=== PATIENT | male | born 1975 | race Caucasian/White ===

== ENCOUNTER → 2023-09-21 10:54 | Outpatient (CLI) | payer OTHER, SELFPAY ==
--- NOTE | ~2023-09-21 | US_ITS ---
EXAMINATION: US soft tissue groin LT DATE: 09/21/2023 11:30 INDICATION: Malignant neoplasm of left testis. Left groin hernia. TECHNIQUE: Grayscale and Doppler ultrasound images of the left groin were obtained. COMPARISON: Ultrasound 08/02/2014, CT 01/21 717 FINDINGS: In the left inguinal region, there is a hernia containing fat. No abnormal lymphadenopathy. IMPRESSION: 1. Left inguinal hernia containing fat. Reviewed, dictated and finalized at location A. ION WORKER
== END ==
PROVIDERS: PCP Internal Medicine Medical Oncology; Visit Provider Internal Medicine Medical Oncology
DX: C62.12 Malignant neoplasm of descended left testis (principal); K40.90 Unilateral inguinal hernia, without obstruction or gangrene, not specified as recurrent
CPT/HCPCS: 76882

== ENCOUNTER 2025-01-22 07:30 | Observation (INO) | payer OTHER, SELFPAY ==
[2025-01-22] VITALS (7 sets, daily range): BP systolic 125–135; BP diastolic 73–91; PULSE 58–71; RESP 16–18; TEMP 36.2–36.4; O2SAT 95–97; BMI 29.0
--- NOTE | ~2025-01-22 | MR_ITS ---
MRI of the lumbar spine Clinical History: Compression fracture, metastatic disease Technique: Axial T2-weighted images, and sagittal T1-weighted, T2-weighted, and T2 fat-sat images wer e acquired. Following intravenous administration of 19 cc ProHance gadolinium, T1-weighted fat-sat im aging was performed in the axial and sagittal planes. Findings: There is acute to subacute, mild compression fracture deformity of L4 with mild loss of hei ght superiorly and amorphous marrow edema, versus possibly acute Schmorl's node at the anterior, supe rior endplate. No other fracture or subluxation. No suspicious bone marrow signal abnormality seen. I ntraosseous hemangioma noted at T12. At L1-L2, there is moderate degenerative disc narrowing with disc bulge and annular fissure. There is mild to moderate facet arthropathy. No mabel central canal stenosis. Neural foramina are preserved. At L2-L3, there is mild disc bulge with moderate facet arthropathy. No central canal stenosis. There is mild left neural foraminal narrowing. Right neural foramen preserved. At L3-L4, there is mild degenerative distended. There is minimal disc bulge and moderate facet arthro ludy. No mabel central canal stenosis. There is mild left neural foraminal narrowing. Right neural f oramen preserved. At L4-L5, there is mild disc bulge with moderate facet arthropathy. No mabel central canal stenosis. There is moderate to advanced left neural foraminal narrowing, and minimal right neural foraminal valencia rowing. At L5-S1, there is minimal disc bulge and mild facet arthropathy. No central canal stenosis. Minimal right neural foraminal narrowing present. Left neural foramen preserved. Paravertebral soft tissues are unremarkable. No abnormal postcontrast enhancement identified. Impression: Acute to subacute mild compression deformity of L4, versus possibly acute Schmorl's node superior end plate. No evidence for metastatic disease. Mild degenerative spondylosis, as above. Reviewed, dictated and finalized at [facility]. Impression: Acute to subacute mild compression deformity of L4, versus possibly acute Schmo rl's node superior endplate. No evidence for metastatic disease. Mild degenerative spondylosis, as above.
--- NOTE | ~2025-01-22 | CT_ITS ---
CLINICAL INDICATION: Abdominal pain and distention COMPARISON: 01/21/2017. TECHNIQUE: Multiple contiguous axial images of the abdomen and pelvis were performed following the ad ministration of with 100 mL Omnipaque-350 intravenous contrast The dose-length product (DLP) was 618.79 mGy-cm. Automated exposure control and iterative reconstruction technique were employed. FINDINGS/OBSERVATIONS: Visualized lower thorax: The bilateral lung bases are clear. The heart is of normal size, without pericardial effusion. Small air-filled hiatal hernia. Liver: The liver demonstrates homogeneous enhancement and is not enlarged. Gallbladder and biliary system: The gallbladder is distended, and otherwise unremarkable. Pancreas: The pancreas enhances homogeneously without ductal dilatation. Spleen: The spleen enhances homogeneously and is not enlarged. Kidneys: The bilateral kidneys enhance symmetrically without hydronephrosis or renal calculi. Adrenal glands: Unremarkable. Gastrointestinal tract: Fecal stasis within the colon. Appendix: The air-filled appendix is of normal caliber (axial series, images 113 through 125) Vasculature: Unremarkable. Lymph nodes: No pathologically enlarged or morphologically suspicious lymph nodes within the retroperitoneum or at the root of the mesentery. Pelvic structures: The bladder is minimally distended, and demonstrates thickened riley. The prostate gland is not enlarged. Body wall and musculoskeletal: Complex fat-containing umbilical hernia. Fat-containing left inguinal hernia. Compression of the superior endplate of L4, an interval change from the 2017 examination with edwin albarran soft tissue change, possibly subacute. Adjacent lucency which may be related to compression versus possibly a metastatic focus. Clinical correlation is needed regarding point tenderness in this location. Loss of 50% of the vertebral body height is noted. IMPRESSION: No acute intra-abdominal pathology. Compression of the L4 vertebral body, possibly subacute, with additional findings suggesting a possib le pathologic fracture, as detailed above. Reviewed, dictated and finalized at location [facility]. IMPRESSION: No acute intra-abdominal pathology. Compression of the L4 vertebral body, possibly subacute, with additional findin gs suggesting a possible pathologic fracture, as detailed above.
--- OUTSIDE RECORDS SUMMARY | 2025-01-22 07:32 | XMS_ITS | Clinical Summary ---
Author Organization [facility] Address [address] [place] [address] Care Team Providers Care Threshing Machine Operator Name Role Phone Ann Lang MD Primary Care Provider [phone] Source Comments [facility] and Associated Physician Practices is amultiple site organization consisting of ambulatory clinics and hospital sitesin [place], [place], [place] and [place]. This disclosure is being madepursuant to the Care Everywhere program and may not contain all information available regarding this patient. Last updated 18.[facility] Allergies No known active allergies Medications * Be aware that medications may not be up to date on this document. Alwaysverify current medications with the patient. atorvastatin (Lipitor) 10 MG tablet Take 1 (one) tablet by mouth once daily 10/11/2022 Active Loratadine (CLARITIN PO) Active Social History Tobacco Use Types Packs/Day Years Used Date Smoking Tobacco: Former Cigarettes Q uit: 10/11/2006 Smokeless Tobacco: Never Alcohol Use Standard Drinks/Week Comments Yes 0 (1 standard drink = 0.6 oz pur e alcohol) Socially Sex and Gender Information Value Date Recorded Sex Assigned at Male 10/22/2022 8:57 AM TETRYL BLENDER OPERATOR Legal Sex Male 11:12 AM TETRYL BLENDER OPERATOR Gender Identity Male 10/22/2022 8:57 AM TETRYL BLENDER OPERATOR Sexual Orientation Straight 10/22/2022 8: 57 AM TETRYL BLENDER OPERATOR Last Filed Vital Signs Vital Sign Reading Time Taken Comments Blood Pressure 142/78 05/24/2023 3:26 PM CDT Pulse 72 12/02/2022 2:25 PM TETRYL BLENDER OPERATOR Temperature 36 C (96.8 F) 12/02/2022 2:25 PM TETRYL BLENDER OPERATOR Respiratory Rate 15 12/02/2022 2:25 PM TETRYL BLENDER OPERATOR Oxygen Saturation 97% 12/02/2022 2:25 PM TETRYL BLENDER OPERATOR Inhaled Oxygen Concentration - - Weight 94.5 kg (208 lb 6.4 oz) 05/24/2023 3:25 P M CDT Height 181.6 cm (5' 11.5 ) 05/24/2023 3:25 PM CD T Body Mass Index 28.66 05/24/2023 3:25 PM CDT Plan of Treatment Health Maintenance Due Date Last Done Comments COLOGUARD (AGES 45-75) - COL ON CA SCREENING 1974 CT COLONOGRAPHY - COLON CA SCREENING 1975 FIT - COLON CA SCREENING 1974 FLEX SIG - COLON CA SCREENING 1974 HIV SCREENING 1989 HEPATITIS C SCREENING 09/03/1992 DTAP/TDAP/TD VACCINES (1 - Tdap) 1993 HEPATITIS B VACCINE (1 of 3 - 19+ 3-dose series) 1993 COVID-19 VACCINE (4 - 2023-2 5 season) 2024 08/06/2021, 01/01/2021, 12/03/2020 PNEUMOCOCCAL VACCINE 50+ (1 of 1 - PCV) 2024 ZOSTER VACCINE (1 of 2) 2024 DEPRESSION SCREENING 10/10/2024 INFLUENZA VACCINE (Season Ended) 2025 08/17/2021, 07/09/2020, 08/23/2019 SCREENING FOR DIABETES 10/25/2025 10/25/2022 COLONOSCOPY - COLON CA SCREENING 12/02/2027 12/02/2022, 12/02/2022, 12/02/2022 Colorectal Cancer Screening 12/02/2027 COLON MONITORING 12/02/2032 12/02/2022, 12/02/2022, 12/02/2022 HIB VACCINE Aged Out No longer eligi ble based on patient's age to complete this topic HPV VACCINE Aged Out No longer eligi ble based on patient's age to complete this topic MENINGOCOCCAL (Group B) VACCINE SHARED DECISION-MAKING Aged Out No longer eligible based on patient's age to complete this topic MENINGOCOCCAL GROUPS A/C/Y/W VACCINE Aged Out No longer eligible b ased on patient's age to complete this topic Procedures Procedure Name Priority Date/Time Associated Diagnosis Comments ENDOSCOPY, COLON, SCREENING Routine 12/02/2022 1:10 PM TETRYL BLENDER OPERATOR Screen for colon cancer HEMOGLOBIN A1C Routine 10/25/2022 3:42 PM TETRYL BLENDER OPERATOR Lower abdominal pain Irritable bowel syndrome with diarrhea Change in bowel habits Generalized postprandial abdominal pain from Last 3 Months or Most Recently Relevant to Health Maintenance Results * ENDOSCOPY, COLON, SCREENING (12/02/2022 1:10 PM TETRYL BLENDER OPERATOR) Report Endoscopy POC _ Patient Name: Juan Carlos Cm Procedure Date: 12/02/2022 1:10 PM Date of : 1975 Admit Type: Outpatient Age: 47 Gender: Male Ethnicity: Not or Race: White Attending MD: Naren Ortiz MD _ Procedure: Colonoscopy Indications: Screening for colorectal malignant neoplasm Providers: Naren Ortiz MD (Doctor), Sal Jackson RN, Aga Francois, Artisan Plasterer, Yanira Holloway, Artisan Plasterer Patient Profile: 47M presents for screening colonoscopy avg risk. no prior exams Referring MD: Ann Lang MD (Referring MD) Medicines: Monitored Anesthesia Care Complications: No immediate complications. _ Estimated Blood Loss: Estimated blood loss was minimal. Procedure: Pre-Anesthesia Assessment: - Prior to the procedure, a History and Physical was performed, and patient medications and allergies were reviewed. The patient's tolerance of previous anesthesia was also reviewed. The risks and benefits of the procedure and the sedation options and risks were discussed with the patient. All questions were answered, and informed consent was obtained. Prior Anticoagulants: The patient has taken no previous anticoagulant or antiplatelet agents. ASA Grade Assessment: II - A patient with mild systemic disease. After reviewing the risks and benefits, the patient was deemed in satisfactory condition to undergo the procedure. After I obtained informed consent, the scope was passed under direct vision. Throughout the procedure, the patient's blood pressure, pulse, and oxygen saturations were monitored continuously. The Colonoscope was introduced through the anus and advanced to the cecum, identified by appendiceal orifice and ileocecal valve. The colonoscopy was performed without difficulty. The patient tolerated the procedure well. The quality of the bowel preparation was fair. The ileocecal valve, appendiceal orifice, and rectum were photographed. Impression: - Preparation of the colon was fair. - One 5 mm polyp in the sigmoid colon, removed with a cold biopsy forceps. Resected and retrieved. - One 9 mm polyp in the transverse colon, removed with a cold snare. Resected and retrieved. - The examination was otherwise normal on direct and retroflexion views. Findings: The perianal and digital rectal examinations were normal. A 5 mm polyp was found in the sigmoid colon. The polyp was sessile. The polyp was removed with a cold biopsy forceps. Resection and retrieval were complete. A 9 mm polyp was found in the transverse colon. The polyp was sessile. The polyp was removed with a cold snare. Resection and retrieval were complete. The exam was otherwise without abnormality on direct and retroflexion views. _ Recommendation: - High fiber diet. - Repeat colonoscopy in 5 years for surveillance based on pathology results. Procedure Code(s): --- Professional --- 60724, Colonoscopy, flexible; with removal of tumor(s), polyp(s), or other lesion(s) by snare technique 54317, 59, Colonoscopy, flexible; with biopsy, single or multiple --- Technical --- 79318, Colonoscopy, flexible; with removal of tumor(s), polyp(s), or other lesion(s) by snare technique 05244, 59, Colonoscopy, flexible; with biopsy, single or multiple Diagnosis Code(s): --- Professional --- Z12.11, Encounter for screening for malignant neoplasm of colon K63.5, Polyp of colon --- Technical --- Z12.11, Encounter for screening for malignant neoplasm of colon K63.5, Polyp of colon CPT copyright 2019 [employer]. All rights reserved. The codes documented in this report are preliminary and upon porter head review may be revised to meet current compliance requirements. Naren Ortiz MD 12/02/2022 2:12:27 PM This report has been signed electronically. Number of Addenda: 0 Note Initiated On: 12/02/2022 1:10 PM [facility] 12/02/2022 1:10 PM TETRYL BLENDER OPERATOR us Naren Ortiz MD GI PROCEDURE ORDERABLES Edited R esult - Final [facility] * HEMOGLOBIN A1C (10/25/2022 3:42 PM TETRYL BLENDER OPERATOR) Hemoglobin A1c 5.2 <5.7 % 10/25/2022 3:53 PM TETRYL BLENDER OPERATOR [facility] Estimated Average Glucose 103 mg/dL 10/25/2022 3:53 PM TETRYL BLENDER OPERATOR [facility] Blood BLOOD SPECIMEN / Unknown Lab Venipuncture / Unknown 10/25/2022 3:42 PM TETRYL BLENDER OPERATOR 10/25/2022 3:42 PM TETRYL BLENDER OPERATOR Narrative [facility] - 10/25/2022 3:53 PM TETRYL BLENDER OPERATOR HbA1c Interpretation: Normal: < 5.7% Pre-diabetes: 5.7-6.4% Diabetes: Equal to or greater than 6.5% Test results diagnostic of diabetes should be repeated for confirmation. Treatment target values recommended by ADA and other clinical organizations should be used to evaluate metabolic control in patients. This test should not replace glucose testing for patients with Type 1 diabetes, pediatric patients, or women. Falsely low HbA1c results may be observed in patients with clinical conditions that shorten erythrocyte life span or decrease mean erythrocyte age such as the presence of unstable hemoglobin variants, elevated hemoglobin F level or other causes of hemolytic anemia. HbA1c may not accurately reflect glycemic control when clinical conditions that affect erythrocyte survival are present. Severe Iron deficiency anemia may yield falsely high results. Hemoglobin A1c assay should not be used to diagnose or monitor diabetes in patients with malignancy, recent blood transfusion, chronic kidney or liver disease. This method may yield falsely low results when hemoglobin (HbF) exceeds 5% in the specimen. The [employer] assay for the measurement of HbA1c is a National Glycohemoglobin Standardization Program (NGSP) certified method. Conrad Osborne BOOSTER OPERATOR-[facility] - CHEMISTRY ORDER FATEMEH Final Result [facility] [address] [place] [address] from Last 3 Months or Most Recently Relevant to Health Maintenance Insurance [facility] [place] [address] Care Teams Threshing Machine Operator Relationship Specialty Start Date End Date Ann Lang MD [address] [place], [place] [id number] PCP - General 10/22/22
[2025-01-22 07:51] LABS: Basophils Absolute Auto 0.1 K/mm3 (0.0-0.1); Basophils Percent Auto 1.7 % (0.2-1.2); Eosinophils Absolute Auto 0.6 K/mm3 (0-0.3); Eosinophils Percent Auto 9.3 % (0-4.4); Hematocrit 43.5 % (42.0-52.0); Hemoglobin 13.8 g/dL (14.0-18.0); Lymphocytes Absolute Auto 2.03 K/mm3 (0.9-3.2); Lymphocytes Percent Auto 34.5 % (18.3-44.2); Mean Corpuscular HGB Conc 31.7 g/dl (32-36); Mean Corpuscular Hemoglobin 30.7 pg (26-34); Mean Corpuscular Volume 96.7 fl (80-100); Mean Platelet Volume 9.7 fl (7.4-10.4); Monocytes Absolute Auto 0.6 K/mm3 (0.1-0.6); Neutrophils Absolute Auto 2.6 K/mm3 (1.3-6.7); Neutrophils Percent Auto 44.5 % (45.5-73.1); Platelet Count Result 307 k/mm3 (150-375); Red Cell Distribution Width 12.2 % (11.5-14.5); White Blood Count 5.9 K/mm3 (4.5-10.0)
--- NOTE | 2025-01-22 07:52 | ED_ITS ---
HPI - General Adult General Chief complaint: Abdominal Pain Stated complaint: abd pain Time Seen by Provider: 01/22/25 07:35 History of Present Illness HPI narrative: Patient 49-year-old gentleman presents emergency department with chief complaint of abdominal pain abdominal distension patient states that this began around 530 this morning feels as though his abdomen is bloated did report that he had a normal bowel movement this morning reports that he has had some nausea patient reports has prior history of testicular cancer that was previously treated. Related Data Allergies Allergy/AdvReac Type Severity Reaction Status Date / Time No Known Allergies Allergy Unknown Verified 01/22/25 07:31 Review of Systems 2 Review of Systems: A 10 system review of systems was completed on the patient and is negative except for what is stated in the HPI. Nursing and ancillary documentation was reviewed. [facility] Past Medical History Medical History Mixed hyperlipidemia Seminoma of testis, stage 1 Social History Social History Smoking status: Never smoker Second hand tobacco smoke exposure: No Alcohol intake: current Drinks per week: 4 Substance use: never Substance use type: does not use Lack of Transportation: No Lack of Food: Never True Current Housing: I Have Housing Concerned About Future Housing: No Difficulty Paying Gas/Electric Bills: No Difficulty Paying for Meds: No Currently Unemployed: No Education: Master's Degree or Higher Difficulty w/ Childcare or Family Care: No Living arrangements: with family Gender identity (if verbalized by the patient): Male Sexual Orientation (if Verbalized by the Patient): Straight or Heterosexual Spiritual care concerns: No Agree to blood products: Yes Exam 2 Narrative: GENERAL: Well-appearing, well-nourished, and in no acute distress. HEAD: Normocephalic, atraumatic. EYES: PERRLA and EOMI. ENT: Nares clear, no rhinorrhea or epistaxis. Mucous membranes moist. NECK: Supple. CHEST: Clear to auscultation. No respiratory distress. HEART: Regular rate and rhythm. No murmur heard. Normal peripheral pulses. ABDOMEN: Soft, nontender, nondistended, normal active bowel sounds. Slight fullness or at the umbilicus no appreciable large hernia EXTREMITIES: Normal range of motion. No edema. SKIN: Warm, dry, no rash. NEURO: No focal deficits. Alert and oriented x3. PSYCH: Normal mood and affect. Course Vital Signs Vital signs: Vital Signs Pulse Rate 69 01/22/25 07:34 Respiratory Rate 16 01/22/25 07:34 Blood Pressure 133/89 01/22/25 07:34 Pulse Oximetry 95 01/22/25 07:34 Pulse Rate 60 01/22/25 09:13 Respiratory Rate 18 01/22/25 09:13 Blood Pressure 132/91 H 01/22/25 09:13 Pulse Oximetry 97 01/22/25 09:13 Medical Decision Making MDM Narrative Medical decision making narrative: Differential diagnosis includes intra-abdominal infection, diverticulitis, colitis, bowel obstruction CT scan showed evidence of an L3 compression fracture with possible metastatic disease. Given the patient has prior history of testicular cancer although he was deemed cancer free after 10 years by his oncologist. The case was discussed with Neurosurgery who recommended MRI with and without contrast to determine whether this is an oncological cause and if there is an oncological cause recommended oncology workup. The case was discussed with the hospitalist patient to facilitate workup on an expedited priority Vital Signs Vital Signs: Vital Signs Pulse Rate 69 01/22/25 07:34 Respiratory Rate 16 01/22/25 07:34 Blood Pressure 133/89 01/22/25 07:34 Pulse Oximetry 95 01/22/25 07:34 Pulse Rate 60 01/22/25 09:13 Respiratory Rate 18 01/22/25 09:13 Blood Pressure 132/91 H 01/22/25 09:13 Pulse Oximetry 97 01/22/25 09:13 Lab Data 01/22/25 07:46 01/22/25 07:46 Labs: Lab Results 01/22/25 01/22/25 01/22/25 Range/Units 07:46 08:09 08:35 WBC 5.9 (4.5-10.0) K/mm3 RBC 4.50 L (4.6-6.20) M/mm3 Hgb 13.8 L (14.0-18.0) g/dL Hct 43.5 (42.0-52.0) % MCV 96.7 (80-100) fl MCH 30.7 (26-34) pg MCHC 31.7 L (32-36) g/dl RDW 12.2 (11.5-14.5) % Plt Count 307 (150-375) k/mm3 MPV 9.7 (7.4-10.4) fl Immature Gran % (Auto) 0.0 (0-0.5) % Neut % (Auto) 44.5 L (45.5-73.1) % Lymph % (Auto) 34.5 (18.3-44.2) % [place] % (Auto) 10.0 H (2.6-8.5) % Eos % (Auto) 9.3 H (0-4.4) % Baso % (Auto) 1.7 H (0.2-1.2) % Lymph # (Auto) 2.03 (0.9-3.2) K/mm3 [place] # (Auto) 0.6 (0.1-0.6) K/mm3 Eos # (Auto) 0.6 H (0-0.3) K/mm3 Baso # (Auto) 0.1 (0.0-0.1) K/mm3 Abs Immat Gran (auto) 0.00 (0.00-0.031) K/mm3 Absolute Neuts (auto) 2.6 (1.3-6.7) K/mm3 Absolute Nucleated RBC 0.000 (0.0-0.012) K/mm3 Nucleated RBC % 0.0 (0.0-0.2) % Sodium 139 (137-145) mmol/L Potassium 4.2 (3.4-5.0) mmol/L Chloride 103 (98-107) mmol/L Carbon Dioxide 29 (22-30) mmol/L Anion Gap 7 (4-12) mmol/L BUN 14 (9-20) mg/dL Creatinine 0.73 (0.7-1.3) mg/dL Estim Creat Clear Calc 113 ml/min Estimated GFR > 60 (59 - ) Glucose 101 (65-110) mg/dL Lactic Acid 0.9 (0.7-2.0) mmol/L Calcium 9.0 (8.4-10.2) mg/dL Total Bilirubin 0.4 (0.2-1.3) mg/dL AST 34 (17-59) U/L ALT 53 H (6-50) U/L Alkaline Phosphatase 53 (38-126) U/L Total Protein 8.0 (6.3-8.2) g/dL Albumin 4.5 (3.5-5.1) g/dL Lipase 107 (23-300) U/L Urine Color Yellow (Yellow) Urine Appearance Clear (Clear) Urine pH 8.0 (5.0-9.0) Ur Specific [place] 1.033 (1.001-1.035) Urine Protein Negative (Negative) mg/dL Urine Glucose (UA) Negative (Negative) mg/dL Urine Ketones Negative (Negative) mg/dL Ur Blood (Man) Negative (Negative) Urine Nitrate Negative (Negative) Urine Bilirubin Negative (Negative) Urine Urobilinogen 0.2 (<2.0) mg/dL Leukocyte Esterase Rfl Negative (Negative) UMM/UL Discharge Plan Discharge Clinical Impression: Abdominal pain, Compression fracture of L3 vertebra Patient Disposition: Still a Patient Condition: Stable Instructions: Antibiotic Form Patient Language: Turkish Prescriptions: No Action atorvastatin 10 mg tablet 10 mg PO DAILY Qty: 90 1RF Follow-up/Referrals: Ann Lang MD [Primary Care Provider] - Time of Disposition: 09:15
[2025-01-22] MEDS: SODIUM CHLORIDE 0.9% IV 1,000 ML 999 ML IV CONT (07:55)
[2025-01-22] MEDS: ONDANSETRON INJ 4 MG/2 ML VIAL IV PUSH (07:56)
[2025-01-22] MEDS: MORPHINE SULFATE (*CRX) 4 MG/ML INJ IV PUSH ×2 (07:56→14:46)
[2025-01-22 08:04] LABS: Alanine Aminotransferase 53 U/L (6-50); Albumin Level 4.5 g/dL (3.5-5.1); Alkaline Phosphatase 53 U/L (38-126); Anion Gap 7 mmol/L (4-12); Aspartate Amino Transferase 34 U/L (17-59); Bilirubin,Total 0.4 mg/dL (0.2-1.3); Blood Urea Nitrogen 14 mg/dL (9-20); Carbon Dioxide 29 mmol/L (22-30); Chloride 103 mmol/L (98-107); Estimated CRCL calculation 113 ml/min; Estimated Glomerular Filt Rate > 60; Glucose 101 mg/dL (65-110); Lipase 107 U/L (23-300); Potassium 4.2 mmol/L (3.4-5.0); Sodium 139 mmol/L (137-145)
[2025-01-22 08:25] LABS: Lactic Acid Reflex 0.9 mmol/L (0.7-2.0)
[2025-01-22 08:41] LABS: Add Urine Microscopic? NO; Appearance Urine Clear (Clear); Bilirubin Urine Negative (Negative); Blood Urine Negative (Negative); Color Urine Yellow (Yellow); Glucose Urine UA Negative (Negative); Ketones Urine Negative (Negative); Leukocyte Esterase Ur Negative LEU/UL (Negative); Nitrate Urine Negative (Negative); Protein Urine Negative (Negative); Specific Grav Ur 1.033 (1.001-1.035); Urobilinogen Urine 0.2 mg/dL (<2.0)
--- NOTE | 2025-01-22 10:15 | ADMGEN ---
This patient, Juan Carlos Craft, was admitted to Medical Room 341-01. Patient/family oriented to hospital policies and general routines including ID bracelet, bed and alarms, visiting hours, pain management, procedures, bathroom and other care routines, personal items, smoking policy, room service/diet, and visiting hours. Information on how to activate the Rapid Response Team has been discussed. Patient/Family are encouraged to report perceived risks to care and to ask questions if they do not understand what they are told or what they should do.
--- NOTE | 2025-01-22 13:40 | PM.IMHP ---
H&P: HPI History of Present Illness Date/Time: 01/22/25 17:00 Chief Complaint: Abdominal pain. 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 He felt fine when he got up this morning and about 30 minutes later he developed fairly sudden onset of severe, diffuse periumbilical pain. Abdomen felt bloated and quickly became somewhat firm and distended. He has had similar symptoms on a few other occasions and they seemed to resolve without intervention however he has tried taking Gas-X and Opal-[place] previously. He is still having some discomfort but it is much improved after receiving IV morphine. On examination he has an umbilical hernia which is reducible but quite tender to palpation with a slightly bluish hue. With further questioning he says that the hernia seems to bulge more with the above symptoms. His last bowel movement was this morning and was unremarkable. He denies fever, chills, sweats, chest pain, epigastric pain, indigestion, hematemesis, melena, and hematochezia. In the ED: Vital signs were stable on arrival. Labs were significant for WBC count of 5.9, hemoglobin 13.8 with 9.3% eosinophils, and an ALT of 53. Urinalysis was unremarkable. CT of the abdomen and pelvis showed no acute intra-abdominal pathology but did note compression fracture of the L4 vertebral body, possibly subacute, with additional finding suggesting a possible pathologic fracture. He is being admitted for MRI. He has not had any falls or trauma and denies back pain. Weight has remained stable and in fact he is up perhaps about 10 lbs. Review of Systems Review of Systems: 12 systems were reviewed and are negative except for as per HPI. [facility] Past Medical History Medical History Mixed hyperlipidemia Seminoma of testis, stage 1 Social History Social History Social History: Surrogate medical decision maker: Tory Craft, spouse. Code status: Full code. Smoking status: Never smoker Second hand tobacco smoke exposure: No Alcohol intake: current Drinks per week: 4 Substance use: never Substance use type: does not use Do You Feel Safe in your Home?: Yes Lack of Transportation: No Lack of Food: Never True Current Housing: I Have Housing Concerned About Future Housing: No Difficulty Paying Gas/Electric Bills: No Difficulty Paying for Meds: No Currently Unemployed: No Education: Master's Degree or Higher Difficulty w/ Childcare or Family Care: No Living arrangements: with family Spiritual care concerns: No Agree to blood products: Yes Meds Home Medications and Allergies Home Medications ?Medication ?Instructions ?Recorded ?Confirmed ?Type atorvastatin 10 mg tablet 10 mg PO DAILY #90 tabs 10/18/24 01/22/25 Rx Allergies Allergy/AdvReac Type Severity Reaction Status Date / Time No Known Allergies Allergy Unknown Verified 01/22/25 07:31 Vital Signs Vital Signs - 24 hr 01/22/25 07:34 01/22/25 09:13 01/22/25 09:18 Temperature 97.6 F Pulse Rate 69 60 Respiratory Rate 16 18 Blood Pressure 133/89 132/91 H Pulse Oximetry 95 97 Oxygen Delivery 01/22/25 10:10 Temperature Pulse Rate Respiratory Rate Blood Pressure Pulse Oximetry 97 Oxygen Delivery Room Air Exam Narrative: General: Well-developed, nontoxic-appearing gentleman sitting in a child study the bed in no distress. Weight: 96 kg. BMI: 29.1. HEENT: PERRL, EOMI. Sclera anicteric. Oral mucosa moist. Neck: Supple. Respiratory: Lungs are clear to auscultation bilaterally. Cardiovascular: Regular rate and rhythm with S1-S2. Gastrointestinal: Abdomen is soft and nondistended with positive bowel sounds. He is tender to palpation the periumbilical region and over a umbilical hernia which is slightly bulging and has a faint bluish hue to it. The hernia is reducible. No guarding or rebound tenderness. Skin: Warm and dry. No rash or lesions on limited exam. Extremities: No cyanosis, clubbing, or edema. Radial and pedal pulses intact. Spine: No midline vertebral tenderness. Neurological: Alert. Cranial nerves 2-12 are grossly intact. Delete No gross focal deficits to casual conversation. Psychiatric: Pleasant and cooperative with normal mood and affect. Judgment and insight intact. H&P: Results Labs Labs: Short CBC 01/22/25 Range/Units 07:46 WBC 5.9 (4.5-10.0) K/mm3 Hgb 13.8 L (14.0-18.0) g/dL Hct 43.5 (42.0-52.0) % Plt Count 307 (150-375) k/mm3 BMP 01/22/25 07:46 Sodium 139 Potassium 4.2 Chloride 103 Carbon Dioxide 29 BUN 14 Creatinine 0.73 Glucose 101 Calcium 9.0 Liver Function 01/22/25 Range/Units 07:46 Total Bilirubin 0.4 (0.2-1.3) mg/dL AST 34 (17-59) U/L ALT 53 H (6-50) U/L Alkaline Phosphatase 53 (38-126) U/L Albumin 4.5 (3.5-5.1) g/dL Urine 01/22/25 Range/Units 08:35 Urine Color Yellow (Yellow) Urine Appearance Clear (Clear) Urine pH 8.0 (5.0-9.0) Ur Specific [place] 1.033 (1.001-1.035) Urine Protein Negative (Negative) mg/dL Urine Glucose (UA) Negative (Negative) mg/dL Imaging Abdomen/Pelvis CT 01/22/25 08:38 IMPRESSION: No acute intra-abdominal pathology. Compression of the L4 vertebral body, possibly subacute, with additional findings suggesting a possible pathologic fracture, as detailed above. Assessment and Plan Assessment and plan (1) Compression fracture of L4 vertebra: Code(s): S32.040A - Wedge compression fracture of fourth lumbar vertebra, initial encounter for closed fracture Status: Acute (2) Umbilical hernia: Code(s): K42.9 - Umbilical hernia without obstruction or gangrene Status: Acute (3) Mixed hyperlipidemia: Code(s): E78.2 - Mixed hyperlipidemia Status: Acute Plan The patient presented to the emergency department for fairly sudden onset abdominal pain with bloating and distension early this morning as detailed in HPI. Labs, imaging, EKG, and all reports were personally reviewed. His symptoms improved with morphine but he continues to have tenderness to palpation in the periumbilical region, more so over the umbilical hernia which is reducible. It is possible that his hernia is causing these intermittent episodes of abdominal pain if it becomes transiently incarcerated. Fecal stasis of the colon was also noted on CT scan however I think his pain may be more related to the hernia. Surgery consulted for their opinion. Analgesics available as needed; we talked about limiting narcotics due to findings of fecal stasis. Start MiraLax. Incidentally a L4 compression fraction was seen on imaging with findings suggesting a possible pathologic fracture and an MRI has been ordered. He was treated for stage I seminoma approximately 10 years ago and his scans have always been clear. He does not have any back pain or neurologic symptoms. Vital signs are stable. His home medications will be reviewed and resumed as appropriate. Findings and treatment plan were discussed with the patient and his at bedside. Questions were solicited and answered to satisfaction. The patient's medical management will be taken over by the hospitalist team in a.m. Quality VTE Prophylaxis VTE prophylaxis: mechanical ordered If No VTE Prophylaxis Answer both mechanical and pharmacologic: Reason no pharmacologic proph: low risk/not indicated The patient has been admitted under observation status. Hospitalist [facility] Advance Care Plan I have confirmed that the patient's Advanced Care Plan is present, code status is documented, or surrogate decision maker is listed in patient medical record.: Yes Medication Reconciliation I have utilized all available resources to obtain, update and review the patients current medications (includes all prescriptions, OTC, herbals, cannabis, and nutritional supplements).: Yes
[2025-01-22] MEDS: ACETAMINOPHEN 325 MG TABLET 650 MG PO (20:38)
[2025-01-23 06:00] VITALS: BP 122/69; PULSE 57; RESP 18; TEMP 36.1; O2SAT 96
[2025-01-23] MEDS: ATORVASTATIN 10 MG TABLET PO (08:52)
--- NOTE | 2025-01-23 10:40 | P.CONGS_ITS ---
Assessment and Plan Assessment and plan (1) Umbilical hernia: Code(s): K42.9 - Umbilical hernia without obstruction or gangrene Status: Acute Assessment and Plan: Patient presented with abdominal pain and bloating, which has resolved. CT scan showed a fat-containing umbilical hernia. He has noticed an umbilical bulge in correlation with his last two episodes of his abdominal pain. It is not entirely clear, but this could be contributing to some of his intermittent abdominal pain. He does not have any incarcerated bowel within the hernia for indication for emergent surgical intervention. We discussed both nonoperative and surgical treatment options of either watching and waiting versus surgery. He would prefer to have this surgically repaired, which could be done electively as an outpatient. Will discuss with Dr. Greene and we can plan accordingly. He can be discharged from a surgical standpoint and we can schedule outpatient follow- up. (2) Abdominal pain: Code(s): R10.9 - Unspecified abdominal pain Status: Acute Assessment and Plan: Resolved. See plan above. (3) Compression fracture of L4 vertebra: Code(s): S32.040A - Wedge compression fracture of fourth lumbar vertebra, initial encounter for closed fracture Status: Acute History of Present Illness Consult details Consult date: 01/23/25 Reason for consult: other (Umbilical hernia, abdominal pain) Requesting physician: Delma Galdamez PA-C Narrative: This is a 49-year-old man who presented to the ED yesterday with complaints of abdominal pain and distention. He has had 3 episodes of similar symptoms in the past 1-2 months. His symptoms come on suddenly and have been at random times. It has come on later in the day and yesterday the pain started first thing in the morning after waking up. He first notices some cramping gas pains across his mid abdomen that starts at the umbilicus. He feels bloated and reports his abdomen becomes distended. He denies any nausea or vomiting. He has tried to take Opal- seltzer without relief. Yesterday after his pain started in the morning, he had a normal bowel movement, which did not improve his pain. The last two episodes of pain, he also notices that he had an umbilical bulge that feels like it becomes more distended and firm. This last for a few hours and at times the entire day, but would eventually subside. Yesterday, his pain persisted and was more severe, therefore he came into the ED for evaluation. In the ED, his labs were unremarkable. CT scan of the abdomen pelvis showed stool throughout the colon, a complex fat containing umbilical hernia, and compression of the L4 vertebral body possibly subacute with additional finding suggesting a possible pathologic fracture. CT also mentions adjacent lucency which may be related to compression versus possibly a metastatic focus. 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 He was admitted to the hospitalist service. He has since had a lumbar spine MRI that showed acute to subacute mild compression deformity of L4, versus possibly acute Schmorl's node superior endplate. No evidence for metastatic disease. Mild degenerative spondylosis. Our service was consulted for the fat containing umbilical hernia in the setting of abdominal pain. This morning, the patient reports complete resolution in his symptoms. He no longer feels bloated or has any abdominal pain. Denies any nausea or vomiting. Bowels have been moving normally. He does report having some loose stools and a chronic history of GI complaints. He has followed with a receiving weigher and actually became be can within the past 2 years, which has resolved most of his GI issues. Review of Systems 2 Review of Systems: All systems reviewed & are unremarkable except as noted in HPI and below PMFSH Past Medical History Medical History Mixed hyperlipidemia Seminoma of testis, stage 1 Surgical History Surgical History History of orchiectomy Social History Social History Social History: Surrogate medical decision maker: Tory Venancio, spouse. Code status: Full code. Smoking status: Never smoker Second hand tobacco smoke exposure: No Alcohol intake: current Drinks per week: 4 Substance use: never Substance use type: does not use Do You Feel Safe in your Home?: Yes Lack of Transportation: No Lack of Food: Never True Current Housing: I Have Housing Concerned About Future Housing: No Difficulty Paying Gas/Electric Bills: No Difficulty Paying for Meds: No Currently Unemployed: No Education: Master's Degree or Higher Difficulty w/ Childcare or Family Care: No Living arrangements: with family Spiritual care concerns: No Agree to blood products: Yes Meds Home Medications and Allergies Home Medications ?Medication ?Instructions ?Recorded ?Confirmed ?Type atorvastatin 10 mg tablet 10 mg PO DAILY #90 tabs 10/18/24 01/22/25 Rx Allergies Allergy/AdvReac Type Severity Reaction Status Date / Time No Known Allergies Allergy Unknown Verified 01/22/25 07:31 Vital Signs Vital Signs - 24 hr 01/22/25 11:00 01/22/25 14:00 01/22/25 20:00 Temperature 97.2 F L Pulse Rate 71 71 Respiratory Rate 16 16 Blood Pressure 135/81 Pulse Oximetry 96 96 Oxygen Delivery Room Air Room Air 01/22/25 21:47 01/23/25 06:00 Temperature 97.2 F L 97.0 F L Pulse Rate 58 L 57 L Respiratory Rate 18 18 Blood Pressure 125/73 122/69 Pulse Oximetry 95 96 Oxygen Delivery Exam 2 Const: General: comfortable and no acute distress Nutritional Appearance: a verage body habitus Orientation/consciousness: patient oriented x3 HENMT: Head: normocephalic and atraumatic Ears: hearing grossly normal bilaterally Mouth: Yes moist mucous membranes Eyes: General: appearance normal, both eyes and all related structures P upils: Equal, round and reactive pupils present Neck: Neck: normal visual inspection and full ROM Resp: Effort & Inspection: no respiratory distress Auscultation: clear to auscultation bilaterally Cardio: Rate: regular rate Rhythm: regular rhythm Peripheral pulses: P eripheral pulses 2+ throughout GI: Inspection: non-distended and other (excavatum) GI Palp: Yes Soft to palpation, No Tenderness to palpation present (GI), No Guarding due to palpation present (GI), Yes Hernia present ( umbilical hernia with a bulge and overlying skin appears normal in color) umbilical ( feels to be about a 3 cm defect, partially reducible, nontender) 3-10 cm and No Rebound tenderness present A uscultation: normal bowel sounds Skin: General skin exam: normal color Neuro: General: moves all extremities and no focal motor deficits Speech: n ormal speech Motor exam (neuro): 5/5 motor strength present throughout Extrem: General: normal to inspection and no edema Psych: Mental Status: mental status grossly normal Attitude: cooperative Insight: Good insight present (Psych) Judgement: Good judgement present (Psych) Results Labs 01/22/25 07:46 01/22/25 07:46 Labs: All other labs normal. Imaging Additional studies: ITS Impressions Abdomen/Pelvis CT 01/22/25 08:38 IMPRESSION: No acute intra-abdominal pathology. Compression of the L4 vertebral body, possibly subacute, with additional findings suggesting a possible pathologic fracture, as detailed above. Lumbar Spine MRI 01/23/25 05:34 Impression: Acute to subacute mild compression deformity of L4, versus possibly acute Schmorl's node superior endplate. No evidence for metastatic disease. Mild degenerative spondylosis, as above.
--- NOTE | 2025-01-23 11:19 | P.DS_ITS ---
DS: Admitting Diagnosis Discharge Date 01/23/25 Admitting Diagnosis compression fracture of L4 vertebrae umbilical hernia hyperlipidemia DS: Summary Hospital Course Reason for hospitalization: compression fracture of L4 vertebrae umbilical hernia hyperlipidemia Hospital Course: This is a 49-year-old male with a significant past medical history of stage I seminoma status post surgical resection with chemotherapy approximately 10 years ago, hyperlipidemia who presented to the hospital with complaints of abdominal pain. Workup in the hospital included a CT of the abdomen and pelvis which showed no acute intra-abdominal pathology but did note compression fracture of L4 vertebral body possibly subacute indicating a pathological fracture. On initial exam he had a umbilical hernia which was reducible. He also had an MRI of the lumbar spine which showed acute to subacute mild compression deformity of L4 versus possible acute Schmorl's node superior endplate, mild degenerative spondylosis. Initial labs showed a white blood cell count of 5.9, hemoglobin 13.8, otherwise unremarkable. UA was obtained and was also negative. General surgery was consulted for the hernia and plans are to do this as an outpatient procedure per the General surgery team.Patient denies any back pain at this time. He is stable for discharge and will need to follow up with General surgery in 1-2 weeks to set up outpatient hernia repair. final diagnosis: compression fracture of L4 vertebrae, umbilical hernia Status at Discharge Cognitive/behavioral status at discharge: alert oriented x4 Functional status at discharge: independent ambulation Overall status at discharge: patient is progressing back to baseline Time Spent with Patient Time attestation: Total time spent providing and/or coordinating discharge services: Time spent: Greater than 30 minutes Exam Narrative: General: In no acute distress, well nourished Head: atraumatic, no encephalopathy Eyes: EOMI, PERRLA, sclera clear ENT: moist mucous membranes, nasal passages clear Neck: supple, no JVD, no adenopathy, trachea midline Cardiac: Normal S1 and S2. No murmur, gallops or friction rubs, peripheral pulses intact. Respiratory: Lungs clear to auscultation, no adventitious lung sounds Gastrointestinal: soft, non-distended, non-tender, normoactive bowel sounds. : voiding without difficulty. Extremities: moves all extremities well, no edema, good ROM, strength 5/5 Skin: clean, dry, intact. No wounds or lesions. Neuro: Alert and oriented x4, cranial nerves intact, no neuro deficits. Psych: normal mood, normal affect, interactive DS: Data Data Completed and Pending Completed studies during hospitalization: abdomen/ pelvis CT lumbar spine MRI Pending studies at discharge: none Procedures/Treatments: none Discharge Plan Discharge Attending physician on discharge: Lance Almanza Consulting providers: Delma Galdamez; Irma Wilks; Jaskaran Betancourt Discharging Clinician: Candy Fox Anticipated Discharge Date/Time: 01/23/25 11:18 Patient Disposition: Home Activity: as tolerated Diet: as tolerated and regular Discharge Instructions: * Call Dr. Greene's office to schedule a follow-up appointment. You can see him as an outpatient to discuss options for surgery and scheduling. * Follow up with Primary care doctor in 1 week. Get referral to child care specialist. Patient Instructions: Antibiotic Form Patient Language: Telugu Stand Alone Forms: General Discharge Information Follow-up/Referrals: Dante Greene DO [Physician] - 2 Weeks Discharge Medications: Continued atorvastatin 10 mg tablet 10 mg PO DAILY Qty: 90 1RF Date of admission: 01/22/25 09:10 Primary Care Provider: Ann Lang Admitting Provider: Myriam Graham Attending physician on admission: Candy Fox Condition: Improved Quality VTE Prophylaxis VTE prophylaxis: mechanical ordered Hospitalist MIPS Heart Failure (Exclusion) Patient has history of Heart Transplant or Left Ventricular Assistive Device?: No IF YES, STOP HERE Heart Failure (Qualifier) Patient has current or prior documentation of LVEF less than or equal to 40%, or mod/servere depressed LVSF?: No IF NO, STOP HERE
== END 2025-01-23 13:30 | disposition home or self-care (01) ==
LOC: ANHED 09:16 → ANH3MED 09:54
PROVIDERS: Admitting Provider Family Medicine; Emergency Provider Emergency Medicine; PCP Family Medicine; Visit Provider Nurse Practitioner Acute Care
DX: K42.9 Umbilical hernia without obstruction or gangrene (principal); S32.040A Wedge compression fracture of fourth lumbar vertebra, initial encounter for closed fracture; M47.896 Other spondylosis, lumbar region; E78.2 Mixed hyperlipidemia; Z85.47 Personal history of malignant neoplasm of testis; Z92.21 Personal history of antineoplastic chemotherapy
CPT/HCPCS: 36415; 72158; 74177; 80053; 81003; 83605; 83690; 85025; 96361; 96374; 96375; 96376; 99285; A9270; A9579; G0378; J2270; J2405; J7030; Q9967

== ENCOUNTER 2025-03-07 09:47 | Outpatient (CLI) | payer OTHER, SELFPAY ==
--- OUTSIDE RECORDS SUMMARY | 2025-03-07 09:51 | XMS_ITS | Clinical Summary ---
Author Organization [facility] Address [address] [place] [address] Care Team Providers Care Ironing Machine Operator Name Role Phone Ann Lang MD Primary Care Provider [phone] Source Comments [facility] and Associated Physician Practices is amultiple site organization consisting of ambulatory clinics and hospital sitesin [place], [place], [place] and [place]. This disclosure is being madepursuant to the Care Everywhere program and may not contain all information available regarding this patient. Last updated 18.[facility] Allergies No known active allergies Medications * [...] Sex Assigned at Male 10/22/2022 8:57 AM CELLULAR TOWER CLIMBER Legal Sex Male 11:12 AM CELLULAR TOWER CLIMBER Gender Identity Male 10/22/2022 8:57 AM CELLULAR TOWER CLIMBER Sexual Orientation Straight 10/22/2022 8: 57 AM CELLULAR TOWER CLIMBER Last Filed Vital Signs Vital Sign Reading Time Taken Comments Blood Pressure 142/78 05/24/2023 3:26 PM CDT Pulse 72 12/02/2022 2:25 PM CELLULAR TOWER CLIMBER Temperature 36 C (96.8 F) 12/02/2022 2:25 PM CELLULAR TOWER CLIMBER Respiratory Rate 15 12/02/2022 2:25 PM CELLULAR TOWER CLIMBER Oxygen Saturation 97% 12/02/2022 2:25 PM CELLULAR TOWER CLIMBER Inhaled Oxygen Concentration - - Weight 94.5 kg (208 lb 6.4 oz) 05/24/2023 3:25 P M CDT Height 181.6 cm (5' 11.5) 05/24/2023 3:25 PM CD T Body Mass [...] ENDOSCOPY, COLON, SCREENING Routine 12/02/2022 1:10 PM CELLULAR TOWER CLIMBER Screen for colon cancer HEMOGLOBIN A1C Routine 10/25/2022 3:42 PM CELLULAR TOWER CLIMBER Lower abdominal pain Irritable bowel syndrome with diarrhea Change in bowel habits Generalized postprandial abdominal pain from Last 3 Months or Most Recently Relevant to Health Maintenance Results * ENDOSCOPY, COLON, SCREENING (12/02/2022 1:10 PM CELLULAR TOWER CLIMBER) Report Endoscopy POC _ Patient Name: Juan Carlos Cm Procedure Date: 12/02/2022 1:10 PM Date of : 1975 Admit Type: Outpatient Age: 47 Gender: Male Ethnicity: Not or Race: White Attending MD: Naren Ortiz MD _ Procedure: Colonoscopy Indications: Screening for colorectal malignant neoplasm Providers: Naren Ortiz MD (Doctor), Sal Jackson RN, Aga Francois, Entry Processor, Yanira Holloway, Entry Processor Patient Profile: 47M presents for screening colonoscopy [...] pathology results. Procedure Code(s): --- Professional --- 73705, Colonoscopy, flexible; with removal of tumor(s), polyp(s), or other lesion(s) by snare technique 27218, 59, Colonoscopy, flexible; with biopsy, single or multiple --- Technical --- 28069, Colonoscopy, flexible; with removal of tumor(s), polyp(s), or other lesion(s) by snare technique 55728, 59, Colonoscopy, flexible; with biopsy, single or multiple Diagnosis Code(s): --- Professional --- Z12.11, Encounter for screening for malignant neoplasm of colon K63.5, Polyp of colon --- Technical --- Z12.11, Encounter for screening for malignant neoplasm of colon K63.5, Polyp of colon CPT copyright 2019 [employer]. All rights reserved. The codes documented in this report are preliminary and upon death surveys coder review may be revised to meet current compliance requirements. Naren Ortiz MD 12/02/2022 2:12:27 PM This report has been signed electronically. Number of Addenda: 0 Note Initiated On: 12/02/2022 1:10 PM [facility] 12/02/2022 1:10 PM CELLULAR TOWER CLIMBER us Naren Ortiz MD GI PROCEDURE ORDERABLES Edited R esult - Final [facility] * HEMOGLOBIN A1C (10/25/2022 3:42 PM CELLULAR TOWER CLIMBER) Hemoglobin A1c 5.2 <5.7 % 10/25/2022 3:53 PM CELLULAR TOWER CLIMBER [facility] Estimated Average Glucose 103 mg/dL 10/25/2022 3:53 PM CELLULAR TOWER CLIMBER [facility] Blood BLOOD SPECIMEN / Unknown Lab Venipuncture / Unknown 10/25/2022 3:42 PM CELLULAR TOWER CLIMBER 10/25/2022 3:42 PM CELLULAR TOWER CLIMBER Narrative [facility] - 10/25/2022 3:53 PM CELLULAR TOWER CLIMBER HbA1c Interpretation: Normal: < 5.7% Pre-diabetes: 5.7-6.4% [...] exceeds 5% in the specimen. The Gomez Ribber assay for the measurement of HbA1c is a National Glycohemoglobin Standardization Program (NGSP) certified method. Conrad Osborne PERINATAL TECHNICIAN-CONTAINERS SALES REPRESENTATIVE LAB - CHEMISTRY ORDER FATEMEH Final Result [facility] [address] [place] [address] from Last 3 Months or Most Recently Relevant to Health Maintenance Insurance [facility] [place] [address] Care Teams Ironing Machine Operator Relationship Specialty Start Date End Date Ann Lang MD [address], [place] [id number] PCP - General 10/22/22
--- NOTE | 2025-03-07 09:57 | ECG_ITS ---
Test Date: 2025-03-07 10:14:38 Measurements Intervals [place] Rate: 64 P: 27 WY: 199 QRS: -2 QRSD: 93 T: 2 QT: 355 QTc: 367 Interpretive Statements SINUS RHYTHM LOW QRS VOLTAGE IN PRECORDIAL LEADS [QRS DEFLECTION < 1.0 mV IN CHEST LEADS] INCOMPLETE RIGHT BUNDLE BRANCH BLOCK [90+ ms QRS DURATION, TERMINAL R IN V1/V2, 40+ ms S IN I/aVL/V4/V5/V6] POSSIBLE ANTERIOR MYOCARDIAL INFARCTION [30 ms Q WAVE IN V3/V4, OR R < 0.2 mV IN V4], OF INDETERMINATE AGE No previous ECG available for comparison Electronically Signed On 03-08-2025 11:02:00 CDT by Migue Romero M.D.
== END 2025-03-07 09:48 | disposition home or self-care (01) ==
PROVIDERS: PCP Family Medicine; Visit Provider Surgery
DX: E78.2 Mixed hyperlipidemia (principal); K42.9 Umbilical hernia without obstruction or gangrene; R94.31 Abnormal electrocardiogram [ECG] [EKG]
CPT/HCPCS: 36415; 86850; 86900; 86901; 93005

== ENCOUNTER 2025-03-12 02:04 | Day surgery (SDC) | payer OTHER, SELFPAY ==
[2025-03-05 15:42] VITALS: BMI 27.9
--- NOTE | 2025-03-05 15:46 | SUR.PREOP ---
Report to the Outpatient Waiting Room, entrance under the green pavilion located off [facility], at time _0630_ on date _03/12/2025_. Planned Procedure Time: _0830_.? Time changes happen often and if your time is changed the preop area will call you the afternoon before. - You and your visitor will be asked to self-screen and do not enter if you have any COVID symptoms. Please call surgeon if you need to reschedule. - A mask is optional within the hospital at this time. Patients may have clear liquids (water, carbonated beverages, clear teas, apple juice) until 3 hours prior to surgery with a maximum of 20 ounces. - No food from midnight until time of surgery and no smoking, or chewing tobacco (or any form of nicotine). No chewing gum, candy or mints. Take only the following medications with a SIP of water on the morning of surgery: _NA_ DO NOT STOP ANY OF YOUR OTHER PRESCRIPTION MEDICATIONS PRIOR TO SURGERY EXCEPT THE FOLLOWING Hold all vitamins and supplements for 3 days per anesthesiologist. Medications to discontinue per physician _NA_ Date to take last dose_NA_ Please no make-up, nail lao, hairspray, perfume, deodorant, or body powder the day of surgery.? No jewelry (including any body piercings) or valuables the day of surgery, leave them at home.? Please take a shower or bath the night before, or the morning of, surgery with an antibacterial soap.? Wear comfortable, loose fitting clothing. - Jewelry must be removed prior to entering the operating room.? Rings and piercings that are not removed may be cut off. - The hospital will not accept responsibility for valuables.? - Please leave all valuables, including medications, at home the day of surgery. If you are going home after surgery, a licensed horse and wagon driver must drive you home.? - NO public transportation without another adult if you receive anesthesia. - We recommend that an adult stay with you for 24 hours following discharge. - We also recommend that you do not drive, make important decision, drink alcoholic beverages, or take any drugs that were not prescribed by your health care provider for at least 24 hours after your discharge time. Follow any additional instructions given to you from your surgeon. Telephone instructions given to _Matt_and asked if any additional questions and then verbalized understanding. Patient advised to call surgeon office or pre surgery nurse liaison [phone] if any additional questions.
[2025-03-12] VITALS (8 sets, daily range): BP systolic 120–139; BP diastolic 76–85; PULSE 58–78; RESP 12–21; TEMP 36.1–36.3; O2SAT 93–100; BMI 27.5
--- OUTSIDE RECORDS SUMMARY | 2025-03-12 02:07 | XMS_ITS | Clinical Summary ---
Author Organization [facility] Address [address] [place] [address] Care Team Providers Care Desktop Manager Name Role Phone Ann Lang MD Primary Care Provider [phone] Source Comments [facility] and Associated Physician Practices is amultiple site organization consisting of ambulatory clinics and hospital sitesin [place], [place], [place] and [place]. This disclosure is being madepursuant to the Care Everywhere program and may not contain all information available regarding this patient. Last updated 18.[facility] Allergies No known active allergies Medications * [...] Sex Assigned at Male 10/22/2022 8:57 AM NITRIC ACID CONCENTRATOR OPERATOR Legal Sex Male 11:12 AM NITRIC ACID CONCENTRATOR OPERATOR Gender Identity Male 10/22/2022 8:57 AM NITRIC ACID CONCENTRATOR OPERATOR Sexual Orientation Straight 10/22/2022 8: 57 AM NITRIC ACID CONCENTRATOR OPERATOR Last Filed Vital Signs Vital Sign Reading Time Taken Comments Blood Pressure 142/78 05/24/2023 3:26 PM CDT Pulse 72 12/02/2022 2:25 PM NITRIC ACID CONCENTRATOR OPERATOR Temperature 36 C (96.8 F) 12/02/2022 2:25 PM NITRIC ACID CONCENTRATOR OPERATOR Respiratory Rate 15 12/02/2022 2:25 PM NITRIC ACID CONCENTRATOR OPERATOR Oxygen Saturation 97% 12/02/2022 2:25 PM NITRIC ACID CONCENTRATOR OPERATOR Inhaled Oxygen Concentration - - Weight [...] ENDOSCOPY, COLON, SCREENING Routine 12/02/2022 1:10 PM NITRIC ACID CONCENTRATOR OPERATOR Screen for colon cancer HEMOGLOBIN A1C Routine 10/25/2022 3:42 PM NITRIC ACID CONCENTRATOR OPERATOR Lower abdominal pain Irritable bowel syndrome with diarrhea Change in bowel habits Generalized postprandial abdominal pain from Last 3 Months or Most Recently Relevant to Health Maintenance Results * ENDOSCOPY, COLON, SCREENING (12/02/2022 1:10 PM NITRIC ACID CONCENTRATOR OPERATOR) Report Endoscopy POC _ Patient Name: Juan Carlos Cm Procedure Date: 12/02/2022 1:10 PM Date of : 1975 Admit Type: Outpatient Age: 47 Gender: Male Ethnicity: Not or Race: White Attending MD: Naren Ortiz MD _ Procedure: Colonoscopy Indications: Screening for colorectal malignant neoplasm Providers: Naren Ortiz MD (Doctor), Sal Jackson RN, Aag Francois, Warping Machine Operator, Yanira Holloway, Warping Machine Operator Patient Profile: 47M presents for screening colonoscopy [...] pathology results. Procedure Code(s): --- Professional --- 62292, Colonoscopy, flexible; with removal of tumor(s), polyp(s), or other lesion(s) by snare technique 31878, 59, Colonoscopy, flexible; with biopsy, single or multiple --- Technical --- 69214, Colonoscopy, flexible; with removal of tumor(s), polyp(s), or other lesion(s) by snare technique 32246, 59, Colonoscopy, flexible; with biopsy, single or multiple Diagnosis Code(s): --- Professional --- Z12.11, Encounter for screening for malignant neoplasm of colon K63.5, Polyp of colon --- Technical --- Z12.11, Encounter for screening for malignant neoplasm of colon K63.5, Polyp of colon CPT copyright 2019 [employer]. All rights reserved. The codes documented in this report are preliminary and upon transmission mechanic review may be revised to meet current compliance requirements. Naren Ortiz MD 12/02/2022 2:12:27 PM This report has been signed electronically. Number of Addenda: 0 Note Initiated On: 12/02/2022 1:10 PM [facility] 12/02/2022 1:10 PM NITRIC ACID CONCENTRATOR OPERATOR us Naren Ortiz MD GI PROCEDURE ORDERABLES Edited R esult - Final [facility] * HEMOGLOBIN A1C (10/25/2022 3:42 PM NITRIC ACID CONCENTRATOR OPERATOR) Hemoglobin A1c 5.2 <5.7 % 10/25/2022 3:53 PM NITRIC ACID CONCENTRATOR OPERATOR [facility] Estimated Average Glucose 103 mg/dL 10/25/2022 3:53 PM NITRIC ACID CONCENTRATOR OPERATOR [facility] Blood BLOOD SPECIMEN / Unknown Lab Venipuncture / Unknown 10/25/2022 3:42 PM NITRIC ACID CONCENTRATOR OPERATOR 10/25/2022 3:42 PM NITRIC ACID CONCENTRATOR OPERATOR Narrative [facility] - 10/25/2022 3:53 PM NITRIC ACID CONCENTRATOR OPERATOR HbA1c Interpretation: Normal: < 5.7% Pre-diabetes: [...] exceeds 5% in the specimen. The Gomez Clinical Lab Assistant assay for the measurement of HbA1c is a National Glycohemoglobin Standardization Program (NGSP) certified method. Conrad Osborne ANIMAL ASSISTANT-FORM TAMPER LAB - CHEMISTRY ORDER FATEMEH Final Result [facility] [address] [place] [address] from Last 3 Months or Most Recently Relevant to Health Maintenance Insurance [facility] [place] [address] Care Teams Desktop Manager Relationship Specialty Start Date End Date Ann Lang MD [address] [place] [place], [place] [id number] PCP - General 10/22/22
[2025-03-12] MEDS: LACTATED RINGERS 1,000 ML 30 ML IV CONT ×2 (07:50→10:07)
[2025-03-12] MEDS: ACETAMINOPHEN 500 MG TABLET 1000 MG PO (07:50)
[2025-03-12] MEDS: KETOROLAC 15 MG/ML VIAL (*BKC) IV PUSH ×2 (07:51→10:21)
--- NOTE | 2025-03-12 08:06 | WPDHPUPDATE1 ---
History and Physical Update Update Date/Time: 03/12/25 08:06 History and Physical has been reviewed, including an updated exam of the patient. There are NO changes in the patient's condition. Risks, benefits, and alternatives have been discussed and questions answered. Patient agrees to proceed with procedure.
--- NOTE | 2025-03-12 08:25 | P.PNAN_ITS ---
Anes - Initial Pre Proc Eval Procedure: Operation Date: 03/12/25 08:30 Proposed Procedures p Laparoscopic Umbilical Hernia Repair with Mesh, Davinci Assisted - Dante Greene DO Date/Time: 03/12/25 08:25 Surgeon: Dante Greene DO Pre Op Diagnosis: umbilical hernia Patient Data Age: 49 Gender: M Height: 1.8 m Weight: 89.6 kg Last Vital Signs Temp 97.4 F L 03/12/25 07:48 Pulse 68 03/12/25 07:48 BP 134/85 03/12/25 07:48 Pulse Ox 96 03/12/25 07:48 O2 Del Method Room Air 03/12/25 07:48 Allergies Allergy/AdvReac Type Severity Reaction Status Date / Time No Known Allergies Allergy Unknown Verified 03/05/25 15:38 Home Medications ?Medication ?Instructions ?Recorded ?Confirmed ?Type atorvastatin 10 mg tablet 10 mg PO DAILY #90 tabs 10/18/24 03/12/25 Rx Patient hx anesthesia problems: none Family hx anesthesia problems: none Results Review: All pre-operative results and documents have been reviewed as part of the pre- operative evaluation. [facility] Past Medical History Medical History Mixed hyperlipidemia Seminoma of testis, stage 1 Surgical History Surgical History History of orchiectomy Social History Social History (Updated 02/15/25 @ 08:46 by Oscar Lipscomb MA) Social History: Surrogate medical decision maker: Torypenny Carft, spouse. Code status: Full code. Smoking status: Never smoker Second hand tobacco smoke exposure: No Alcohol intake: current Drinks per week: 4 Alcohol use details: OCCASIONALLY Substance use: never Substance use type: does not use Do You Feel Safe in your Home?: Yes Lack of Transportation: No Lack of Food: Never True Current Housing: I Have Housing Concerned About Future Housing: No Difficulty Paying Gas/Electric Bills: No Difficulty Paying for Meds: YES Currently Unemployed: No Education: Master's Degree or Higher Difficulty w/ Childcare or Family Care: No Living arrangements: with family Additional living arrangements comments: Spiritual care concerns: No Agree to blood products: Yes Anes - Eval Final PreProcedure Day of Procedure 03/12/25 08:25 Patient weight: normal Heart: regular rate and rhythm Lungs: clear to auscultation Airway: Mallampati scale class II Neurological: alert and oriented Last oral intake: >/= 8 hours ASA classification: III Emergent: no Anesthetic plan: proceed Anesthesia type and monitoring: general ETT and standard monitoring Results Review: All pre-operative results and documents have been reviewed as part of the pre-operative evaluation. Informed Consent: The patient's anesthetic plan and its attendant risks and benefits were discussed with the patient/family/POA. Questions were solicited and answers provided to the satisfaction of the patient/family/POA.
[2025-03-12] MEDS: ceFAZolin 2 GM/D5W 50 ML 2 GM/50 ML BAG IVPB (08:38)
[2025-03-12] MEDS: BUPIVACAINE/EPINEPHRINE 0.5% 50 ML VIAL 30 ML INFILTRATE (09:20)
--- NOTE | 2025-03-12 10:34 | P.OP_ITS ---
Procedure Note - Detailed Date of Procedure 03/12/25 Pre-op Diagnosis umbilical hernia Post-op Diagnosis Same (2 cm umbilical hernia) Procedure Performed Laparoscopic 2 cm umbilical hernia repair with mesh, da Carloz assisted Surgeon Dante Greene DO Anesthesia General and Local (0.5% bupivacaine with epinephrine) Indications This is a 49-year-old man who presented with a bulge pain at his umbilicus for the past 4 months. Pain was worsening he went to the emergency department 01/22/2025. CT at that time showed a fat containing umbilical hernia. He followed up in the office appeared to have a fat containing reducible umbilical hernia. The symptoms were worsening therefore discussions were made with the patient about treatment options. Decision was made to proceed with robotic assisted laparoscopic umbilical hernia repair with mesh. Findings Robotic assisted laparoscopic umbilical hernia repair with mesh was performed. The patient was found to have a 2 cm umbilical hernia containing preperitoneal fat. A robotic transabdominal preperitoneal approach was utilized for repair. Once a wide enough preperitoneal pocket was created circumferentially around the hernia defect and the hernia sac and preperitoneal fat were reduced, I then repaired the hernia using 0 Stratafix running absorbable suture placed a 15 cm x 15 cm Bard soft mesh. No specimens were obtained for pathology. Description of Procedure Procedure as well as risks, benefits, and alternatives were discussed with the patient. Written consent was obtained and placed in chart prior to procedure. Patient was brought back to surgical suite. He was placed supine on operating table. Time-out was done to confirm patient and procedure. He was then intubated by the anesthesia department. A bump was placed under his left h ip, and the bed was flexed slightly to extend the space between his costal margin and iliac crest. His abdomen was prepped and draped in sterile fashion using chlorhexidine prep. A 5 millimeter incision was made in the left upper quadrant, and a 5 millimeter Optiview trocar was advanced through the abdominal layers under direct visualization. Once inside the abdominal cavity, carbon dioxide ins ufflation was used to create a pneumoperitoneum. His abdomen was inspected. An 8 millimeter incision was made in the left lower quadrant, and an 8 millimeter robotic trocar was placed under direct visualization. Another 8 millimeter incision was made in the left lateral abdomen, and an 8 millimeter robotic trocar was placed under direct visualization. 0.5% bupivacaine with epinephrine was infiltrated around each port site. The 5 millimeter port was removed, and an 8 mm robotic trocar was placed under direct visualization. The robotic arms were brought up to the patient's bedside and secured to the ports. The camera and instruments were inserted, and I then moved over to the robotic console and took control of the camera and instruments. After careful thorough inspection of the abdominal cavity, I began my dissection at the hernia. A preperitoneal plane was started in the left upper quadrant and continued along the left lateral abdomen into the left lower quadrant using scissors with electrocautery. The plane was dissected medially and the hernia sac and preperitoneal fat was then reduced from the hernia defect. The preperitoneal plane was then dissected all the way to the right lateral abdomen wide enough for mesh placement. I then measured the hernia size. The hernia measured 2 cm. The fascia was closed using an 0-Stratafix running suture in a vertical fashion. A 15 cm x 15 cm Bard soft mesh was then placed within the preperitoneal pocket. This was oriented vertically with the mesh centered on the hernia defect. The mesh was then secured at the center and 4 corners using 3-0 Vicryl simple interrupted sutures. The peritoneum was then closed over the mesh using 3 0 V lock running absorbable suture. The repair was inspected, and one final inspection was made around the abdominal cavity. The robotic instruments were then removed, and the robotic arms were disengaged from the trocars. The ports were then removed under direct visualization, the camera was removed, and the pneumoperitoneum was released. The skin of the incisions was then approximated using 4-0 Monocryl subcuticular suture. Exofin glue was then applied on top. The patient was then awakened from anesthesia, extubated, and transferred to recovery. Implants Bard soft mesh 15 cm x 15 cm Estimated Blood Loss 5 Complications No immediate complications Condition Stable Disposition Same day [facility] Billing Surgery - Charge Forward: Surgery Billing
[2025-03-12] MEDS: oxyCODONE HCL (*CRX) 5 MG TAB IR PO (11:57)
== END 2025-03-12 12:32 | disposition home or self-care (01) ==
PROVIDERS: PCP Family Medicine; Visit Provider Surgery
PROC: (CPT 49591; principal; 2025-03-12 08:30)
DX: K42.9 Umbilical hernia without obstruction or gangrene (principal); E78.2 Mixed hyperlipidemia; Z98.890 Other specified postprocedural states; Z85.47 Personal history of malignant neoplasm of testis
CPT/HCPCS: 49591; S2900; A9270; C1781; J0690; J1100; J1596; J1885; J2003; J2250; J2405; J2704; J3010; J7030; J7120